=== PATIENT | male | born 1975 | race Caucasian/White ===

== ENCOUNTER → 2020-07-30 | Outpatient (CLI) | payer OTHER ==
[~2020-07-30] MED LIST: ADVAIR HFA115 MCG/21 INH; AZOR 5-20 MG T1 EACH PO; BYSTOLIC20 MG PO; LIPITOR10 MG PO; PRESTIG PO; SINGULAIR 10 MG10 M1 PO
== END ==
LOC: CAT 11:03
PROVIDERS: ATTEND Internal Medicine Cardiovascular Disease
DX: I25.10 Atherosclerotic heart disease of native coronary artery without angina pectoris (principal); Z13.6 Encounter for screening for cardiovascular disorders; E78.00 Pure hypercholesterolemia, unspecified

== ENCOUNTER → 2020-08-17 | Outpatient (CLI) | payer BC | LOC: LAB 10:50 | PROVIDERS: ATTEND Family Medicine | DX: Z20.828 Contact with and (suspected) exposure to other viral communicable diseases (principal) ==

== ENCOUNTER → 2021-05-26 | Outpatient (CLI) | payer BC, OTHER ==
--- NOTE | ~2021-05-26 | EEG ---
[facility] [place] [address] ELECTROENCEPHALOGRAM Name: JESÚS PALACIOS [id number] Admission: 05/26/21 Attend Phys: Tyler Harrison MD Discharge: Date of : 71 Report #: [id number] THIS REPORT FOR: //name// DATE OF SERVICE: 05/26/2021 This patient is being evaluated for an episode of syncope. EEG was done by placing the electrode by standard 10-20 system of electrode placement. Both referential and sequential montages were used for recording. Background activity in this patient's EEG is about 10 Hz and 30 microvolt. The patient became drowsy that is associated with bilateral slowing. Photic stimulation is unremarkable. Throughout the record, no active epileptiform activity was noticed. IMPRESSION: This patient's EEG is within normal limits. Thank you very much for this referral. By: [id number] Osman Osullivan MD /nt
== END ==
LOC: NEURO 09:01
PROVIDERS: ATTEND Family Medicine
DX: R05 Cough (principal)

== ENCOUNTER → 2021-08-04 | Outpatient (CLI) | payer BC, OTHER | LOC: SJCVCIMAG 07:40 | PROVIDERS: ATTEND Internal Medicine Cardiovascular Disease | DX: I25.10 Atherosclerotic heart disease of native coronary artery without angina pectoris (principal); I10 Essential (primary) hypertension; R55 Syncope and collapse ==